=== PATIENT | male | born 1990 | race American Indian/Alaskan Native ===

== ENCOUNTER 2021-07-03 18:30 | Emergency (ER) | payer OTHER ==
[2021-07-03 18:38] VITALS: BP 134/81
[2021-07-03] MEDS ORDERED: traMADol 50 MG TAB PO ONE (19:15)
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
== END 2021-07-03 20:14 | disposition home or self-care (01) ==
LOC: ED 18:30
DX: M54.2 Cervicalgia (principal); M54.50 Low back pain, unspecified; V87.7XXA Person injured in collision between other specified motor vehicles (traffic), initial encounter; Y93.89 Activity, other specified; Y92.488 Other paved roadways as the place of occurrence of the external cause; Y99.8 Other external cause status
CPT/HCPCS: 99282